=== PATIENT | female | born 1980 | race Caucasian/White ===

== ENCOUNTER 2020-07-16 01:41 | Emergency (ER) | payer BC ==
[~2020-07-16] VITALS: Ht 182.9 cm; Wt 109.1 kg
[2020-07-16] MEDS ORDERED: KETOROLAC 30 MG/ML VIAL. IVP ONE (01:45)
[2020-07-16] MEDS ORDERED: IV NORMAL SALINE 1000ML BAG 1,000 ML IV ONE (01:45)
--- NOTE | 2020-07-16 01:46 | PHYS DOC ---
General Adult HPI: HPI: Patient is a 40 year old female who is on no prescription medications presents with a chief complaint of sore throat. Patient states her throat is primarily on the left side. Patient also states she has bilateral neck discomfort-- located just posterior to her ears. Patient states she has pain when swallowing . Patient is able to handle her saliva. There is no associated fevers or chills. Patient states she had Covid-like symptoms in May but tested negative. Symptoms included nasal drainage lost the taste and smell. Review of Systems: Review of Systems: Constitutional: Denies fever or chills. [] Eyes: Denies change in visual acuity. [] HENT: Positive nasal congestion Positive sore throat. [] Respiratory: Denies cough or shortness of breath. [] Cardiovascular: Denies chest pain or edema. [] GI: Denies abdominal pain, nausea, vomiting, bloody stools or diarrhea. [] : Denies dysuria. [] Musculoskeletal: Denies back pain or joint pain. [Positive neck pain] Integument: Denies rash. [] Neurologic: Denies headache, focal weakness or sensory changes. [] Endocrine: Denies polyuria or polydipsia. [] Lymphatic: Denies swollen glands. [] Psychiatric: Denies depression or anxiety. [] Heart Score: C/O Chest Pain: No Risk Factors: Risk Factors: DM, Current or recent (<one month) smoker, HTN, HLP, family history of CAD, obesity. Risk Scores: Score 0 - 3: 2.5% MACE over next 6 weeks - Discharge Home Score 4 - 6: 20.3% MACE over next 6 weeks - Admit for Clinical Observation Score 7 - 10: 72.7% MACE over next 6 weeks - Early Invasive Strategies Physical Exam: PE: General: alert, no acute distress. Skin: warm, dry and intact. Head:: Normocephalic, atraumatic. Neck: Trachea midline. Eyes: EOMI, Normal conjunctiva, No drainage CARDIOVASCULAR: Regular rate and rhythm RESPIRATORY: No respiratory distress Back: Full range of motion. MUSCULOSKELETAL: Full range of motion of bilateral upper and lower extremities., neck tenderness to palpation, reduced range of motion, no meningeal signs tenderness to palpation paraspinal just inferior/posterior to the ear GASTROINTESTINAL: Abdomen soft without rebound or guarding. NEUROLOGICAL: Alert and noted to person, place and time. No neurological deficits observed Psychiatric: Cooperative. Normal judgment HEENT pharyngeal erythema postnasal drip no exudate bilateral swollen lymph nodes EKG: EKG: [] Radiology/Procedures: Radiology/Procedures: [] Course & Med Decision Making: Course & Med Decision Making Pertinent Labs and Imaging studies reviewed. (See chart for details) [] Patient was evaluated for chief complaint. Work-up consisted of strep swab. Strep swab negative. Pain was treated with Toradol with some improvement. Based upon history of present illness and physical exam I do not suspect meningitis or retropharyngeal abscess or peritonsillar abscess. Patient will be discharged home on Zithromax, Flexeril and Ultram. Dragon Disclaimer: Dragon Disclaimer: This electronic medical record was generated, in whole or in part, using a voice recognition dictation system. Departure Departure Impression: Primary Impression: Sore throat Additional Impression: Cervical strain Disposition: 01 DC HOME SELF CARE/HOMELESS Condition: STABLE Patient Instructions: Cervical Sprain, Musculoskeletal Pain, Sore Throat Scripts Azithromycin (ZITHROMAX) 250 Mg Tablet 1 PKG PO UD, #6 TAB Prov: LOBITO LAZO DO 07/16/20 Cyclobenzaprine Hcl (CYCLOBENZAPRINE HCL) 10 Mg Tablet 10 MG PO TID, #14 TAB Prov: LOBITO LAZO I DO 07/16/20 Tramadol Hcl (ULTRAM) 50 Mg Tablet 1 TAB PO PRN Q6HRS PRN for pain MDD 4 Tablet(s) for 7 Days, #28 TAB 0 Refills Prov: LOBITO LAZO DO 07/16/20 LOBITO LAZO DO Jul 16, 2020 01:46
[2020-07-16] MEDS ORDERED: KETOROLAC 60 MG/2 ML VIAL. IM ONE (03:00)
[2020-07-16] MEDS ORDERED: TRAM-48 PO (03:32)
[2020-07-16] MEDS ORDERED: CYCL10TA2 PO (03:32)
[2020-07-16] MEDS ORDERED: AZIT250T PO (03:32)
[2020-07-16 03:40] VITALS: BP 102/57
== END 2020-07-16 03:40 | disposition home or self-care (01) ==
LOC: ER 01:41
DX: S16.1XXA Strain of muscle, fascia and tendon at neck level, initial encounter (principal); J02.9 Acute pharyngitis, unspecified; R09.81 Nasal congestion; X58.XXXA Exposure to other specified factors, initial encounter; Y93.89 Activity, other specified; Y92.89 Other specified places as the place of occurrence of the external cause; Y99.8 Other external cause status
CPT/HCPCS: 87070; 87880; 96372; 99283; J1885